=== PATIENT | female | born 2000 | race Caucasian/White ===

== ENCOUNTER 2018-01-10 00:09 | Emergency (ER) | payer OTHER ==
[~2018-01-10] VITALS: Ht 157.5 cm; Wt 122.5 kg
[2018-01-10] MEDS ORDERED: METFORMIN HCL500 MG PO (00:21)
[2018-01-10] MEDS ORDERED: LEVOTHYROXINE25 MCG PO (00:22)
== END 2018-01-10 00:50 | disposition home or self-care (01) ==
LOC: ED 00:09
DX: F41.9 Anxiety disorder, unspecified (principal); Z79.899 Other long term (current) drug therapy
CPT/HCPCS: 99282